=== PATIENT | female | born 1995 | race African-American/Black ===

== ENCOUNTER 2018-11-01 10:18 | Observation (INO) | payer MEDICAID ==
[2018-11-01 12:32] LABS: Urine WBC None Seen /hpf (0 - 5)
[2018-11-01 12:54] LABS: Urine Bacteria NONE SEEN /hpf (None Seen); Urine Blood Negative /uL (Negative); Urine Specific Gravity 1.002 (1.001-1.035)
[2018-11-01 13:09] LABS: Alcohol, Urine < 3.0 mg/dL (0-5); Amphetamine Screen, Urine NEGATIVE (NEGATIVE); Barbiturate Scree,Urine NEGATIVE (NEGATIVE); Benzodiazephine Screen, Urine NEGATIVE (NEGATIVE); Cannabinoid Screen, Urine NEGATIVE (NEGATIVE); Cocaine Screen, Urine NEGATIVE (NEGATIVE); Opiate Scree,Urine NEGATIVE (NEGATIVE); Phencyclidine Screen, Urine NEGATIVE (NEGATIVE)
== END 2018-11-01 17:39 | disposition home or self-care (01) | DRG 566 ==
LOC: LDRP 10:18
PROVIDERS: ADMIT Obstetrics & Gynecology; ATTEND Obstetrics & Gynecology
DX: O36.8920 Maternal care for other specified fetal problems, second trimester, not applicable or unspecified (principal); O26.892 Other specified pregnancy related conditions, second trimester; M54.9 Dorsalgia, unspecified; R10.9 Unspecified abdominal pain; Z3A.24 24 weeks gestation of pregnancy
CPT/HCPCS: 59025; 76815; 80307; 81001; 81002; G0378

== ENCOUNTER 2018-12-15 13:20 | Observation (INO) | payer MEDICAID ==
[2018-12-15] MEDS ORDERED: PREN-153 PO (13:40)
[2018-12-15] MEDS ORDERED: METF-370 PO (13:42)
== END 2018-12-15 14:25 | disposition home or self-care (01) | DRG 566 ==
LOC: LDRP 13:20
PROVIDERS: ADMIT Specialist; ATTEND Specialist
DX: O36.8130 Decreased fetal movements, third trimester, not applicable or unspecified (principal); Z3A.30 30 weeks gestation of pregnancy
CPT/HCPCS: 82962; G0378; 59025; 81002

== ENCOUNTER 2018-12-19 18:55 | Observation (INO) | payer MEDICAID ==
[~2018-12-19] VITALS: Ht 160 cm; Wt 88.5 kg
[~2018-12-19 18:55] MED LIST: METF-370 PO; PREN-153 PO
== END 2018-12-19 19:57 | disposition home or self-care (01) | DRG 566 ==
LOC: LDRP 18:55
PROVIDERS: ADMIT Specialist; ATTEND Specialist
DX: O24.419 Gestational diabetes mellitus in pregnancy, unspecified control (principal); Z3A.31 31 weeks gestation of pregnancy
CPT/HCPCS: 76818; 82962; G0378; 59025; 81002; 82948

== ENCOUNTER 2018-12-23 14:22 | Observation (INO) | payer MEDICAID | END 2018-12-23 16:15 | disposition home or self-care (01) | DRG 566 | LOC: LDRP 14:22 | PROVIDERS: ADMIT Obstetrics & Gynecology; ATTEND Obstetrics & Gynecology | DX: O24.419 Gestational diabetes mellitus in pregnancy, unspecified control (principal); Z3A.32 32 weeks gestation of pregnancy | CPT/HCPCS: 59025; 76818; 81002; 82948; 82962; G0378 ==

== ENCOUNTER 2018-12-26 19:07 | Observation (INO) | payer MEDICAID ==
[2018-12-26] MEDS ORDERED: NIF10C PO (20:06)
== END 2018-12-26 20:20 | disposition home or self-care (01) | DRG 566 ==
LOC: LDRP 19:07
PROVIDERS: ADMIT Obstetrics & Gynecology; ATTEND Obstetrics & Gynecology
DX: O24.419 Gestational diabetes mellitus in pregnancy, unspecified control (principal); Z3A.32 32 weeks gestation of pregnancy
CPT/HCPCS: 59025; 76818; 81002; 82948; 82962; G0378

== ENCOUNTER 2018-12-29 22:32 | Observation (INO) | payer MEDICAID ==
[~2018-12-29] VITALS: Ht 160 cm; Wt 88.5 kg
[~2018-12-29 22:32] MED LIST changes: +NIF10C PO
[2018-12-29] MEDS ORDERED: TERBUTALINE SULFATE 1 MG/ML 1ML VIAL SC SCH (23:30)
[2018-12-29] MEDS ORDERED: TERBUTALINE SULFATE 1 MG/ML 1ML VIAL SC ONE (23:33)
[2018-12-30] MEDS ORDERED: NIFEdipine 10 MG CAP ONE (00:12)
[2018-12-30] MEDS ORDERED: NIFEdipine 10 MG CAP PO ONE (00:15)
== END 2018-12-30 00:25 | disposition home or self-care (01) | DRG 566 ==
LOC: LDRP 22:32
PROVIDERS: ADMIT Specialist; ATTEND Specialist
DX: O26.893 Other specified pregnancy related conditions, third trimester (principal); R10.9 Unspecified abdominal pain; Z3A.32 32 weeks gestation of pregnancy
CPT/HCPCS: 59025; 81002; 82948; 82962; 96372; G0378; J3105

== ENCOUNTER 2019-01-02 13:09 | Observation (INO) | payer MEDICAID | END 2019-01-02 14:50 | disposition home or self-care (01) | DRG 566 | LOC: LDRP 13:10 | PROVIDERS: ADMIT Specialist; ATTEND Specialist | DX: O24.419 Gestational diabetes mellitus in pregnancy, unspecified control (principal); Z3A.33 33 weeks gestation of pregnancy | CPT/HCPCS: 59025; 76818; 81002; 82962; G0378 ==

== ENCOUNTER 2019-01-12 11:25 | Observation (INO) | payer MEDICAID ==
[~2019-01-12] VITALS: Ht 160 cm; Wt 88.5 kg
[2019-01-12] MEDS ORDERED: NIFEdipine 10 MG CAP PO ONE (12:15)
[2019-01-12] MEDS ORDERED: LACTATED RINGER'S 1,000 ML IV ONE (12:15)
== END 2019-01-12 14:45 | disposition home or self-care (01) | DRG 566 ==
LOC: LDRP 11:25
PROVIDERS: ADMIT Specialist; ATTEND Specialist
DX: O24.419 Gestational diabetes mellitus in pregnancy, unspecified control (principal); O62.9 Abnormality of forces of labor, unspecified; Z3A.34 34 weeks gestation of pregnancy
CPT/HCPCS: 59025; 76818; 81002; 82962; G0378

== ENCOUNTER 2019-02-03 15:53 | Observation (INO) | payer MEDICAID | END 2019-02-03 17:50 | disposition home or self-care (01) | DRG 566 | LOC: LDRP 15:53 | PROVIDERS: ADMIT Obstetrics & Gynecology; ATTEND Obstetrics & Gynecology | DX: O24.419 Gestational diabetes mellitus in pregnancy, unspecified control (principal); Z3A.38 38 weeks gestation of pregnancy | CPT/HCPCS: 59025; 76818; 81002; 82948; 82962; G0378 ==

== ENCOUNTER 2019-02-04 09:45 | Inpatient (IN) | payer MEDICAID ==
[2019-02-04] VITALS (11 sets, daily range): BP systolic 95–120; BP diastolic 45–59
[~2019-02-04] VITALS: Ht 160 cm; Wt 89.4 kg
[2019-02-04] MEDS ORDERED: BUTORPHANOL TARTRATE 2 MG/1 ML VIAL IV ONE (11:00)
[2019-02-04 11:29] LABS: Basophils # (auto) 0.1 uL; Basophils % (auto) 0.6 % (0.0-2.0); Eosinophils # (auto) 0.1 uL; Eosinophils % (auto) 0.9 % (0.0-7.0); Hematocrit 42.5 % (36.0-46.0); Hemoglobin 14.5 g/dL (12.2-16.2); Lymphocytes # (auto) 0.7 uL; Lymphocytes % (auto) 7.1 % (10.0-50.0); Mean Corpuscular Hgb Conc. 34.2 g/dL (32.0-36.0); Mean Corpuscular Volume 87.7 fL (80.0-100.0); Monocytes # (auto) 0.5 uL; Monocytes % (auto) 4.9 % (0.0-12.0); Neutrophils # (auto) 8.8 uL; Neutrophils % (auto) 86.5 % (37.0-80.0); Nucleated Red Blood Cells % 0.1 %; Platelet Count (auto) 141 10^3/uL (140-450); Red Blood Cells 4.85 10^6/uL (4.0-5.20); Red Cell Distribution Width 14.9 % (11.8-14.3); White Blood Cell 10.1 10^3/uL (4.4-10.8)
[2019-02-04] MEDS: LACTATED RINGER'S 1,000 ML IV SCH ×3 (11:36→23:30)
[2019-02-04 11:44] LABS: INR < 0.93 (0.9-1.15); Partial Thromboplastin Time 29.6 sec (23.64-32.05)
[2019-02-04] MEDS ORDERED: TETRACAINE 1% INJ 2 ML VIAL IJ ONE (11:45)
[2019-02-04 11:50] LABS: BUN/Creatinine Ratio 8.3; Calcium 9.7 mg/dL (8.5-10.1); Potassium 3.9 mmol/L (3.5-5.1)
[2019-02-04 11:53] LABS: Bilirubin, Total 0.4 mg/dL (0.2-1.0); Total Protein 7.4 g/dL (6.4-8.2)
[2019-02-04] MEDS ORDERED: MORPHINE SULF(PF) 0.5MG/ML 10ML VIAL ONE (11:58)
[2019-02-04] MEDS ORDERED: BUPIVACAINE/DEXTROSE MPF 0.75% 2 ML AMP IT ONE (11:58)
[2019-02-04] MEDS ORDERED: SODIUM CHLORIDE LOCK 10 ML ONE (11:58)
[2019-02-04] MEDS ORDERED: ONDANSETRON HCL 4 MG/2 ML VIAL ONE (11:58)
[2019-02-04] MEDS ORDERED: ceFAZolin 1GM VL ONE (11:58)
[2019-02-04] MEDS ORDERED: MIDAZOLAM HCL 1MG/1ML-2 ML VIAL ONE (11:58)
[2019-02-04] MEDS ORDERED: fentaNYL CITRATE 100 MCG/2 ML VL ONE (11:58)
[2019-02-04] MEDS ORDERED: OXYTOCIN 10 UNIT/ML 10ML VIAL ONE (11:58)
[2019-02-04] MEDS ORDERED: EPINEPHrine HCL 1 MG/1 ML AMP ONE (11:58)
[2019-02-04 12:22] LABS: Urine Bacteria FEW /hpf (None Seen); Urine Blood Negative /uL (Negative); Urine Specific Gravity 1.005 (1.001-1.035); Urine WBC <1 /hpf (0 - 5)
[2019-02-04 13:28] LABS: Alcohol, Urine < 3.0 mg/dL (0-5); Amphetamine Screen, Urine NEGATIVE (NEGATIVE); Barbiturate Scree,Urine NEGATIVE (NEGATIVE); Benzodiazephine Screen, Urine NEGATIVE (NEGATIVE); Cannabinoid Screen, Urine NEGATIVE (NEGATIVE); Cocaine Screen, Urine NEGATIVE (NEGATIVE); Opiate Scree,Urine NEGATIVE (NEGATIVE); Phencyclidine Screen, Urine NEGATIVE (NEGATIVE)
[2019-02-04] MEDS ORDERED: LACT. RINGERS/OXYTOCIN 20UNITS 1,000 ML IV SCH (13:32)
[2019-02-04] MEDS ORDERED: ceFAZolin 1GM/50ML 50 ML IV SCH (13:45)
[2019-02-04] MEDS ORDERED: ONDANSETRON HCL 4 MG/2 ML VIAL IV PRN (13:45)
[2019-02-04] MEDS ORDERED: MORPHINE SULF INJ 2 MG/ML SYRINGE 1ML IV PRN (13:45)
[2019-02-04] MEDS ORDERED: ACETAMINOPHEN IV 1000 MG/100ML (10MG/ML) IV ONE (14:04)
[2019-02-04] MEDS ORDERED: ACETAMINOPHEN IV 100 ML IV ONE (14:12)
--- NOTE | 2019-02-04 14:50 | NUR ---
Pt returned from PACU Pt taken to room 7B. Report received from Josette compensation analyst. Fundus firm, mod bleeding, dressing intact. Vitals stable, will continue to monitor.
--- NOTE | 2019-02-04 18:00 | NUR ---
PERICARE COMPLETE, PADS CHANGED, LOCHIA NOTED LIGHT. BELTRAN CATH DRAINED, 450 ML'S OF CLEAR, YELLOW URINE NOTED.
--- NOTE | 2019-02-04 18:15 | NUR ---
Received report, assumed care from Dalia PEGUERO.
--- NOTE | 2019-02-04 18:15 | NUR ---
REPORT ON STABLE PT TO Lynn SCHULZ RN.
--- NOTE | 2019-02-04 18:45 | NUR ---
Initiated assessment, reviewed plan of care, discussed goals. support provided and education reinforced. Pt verbalized understanding. Pt denies pain
[2019-02-04 20:19] LABS: Basophils # (auto) 0 uL; Basophils % (auto) 0.2 % (0.0-2.0); Eosinophils # (auto) 0 uL; Eosinophils % (auto) 0.2 % (0.0-7.0); Hematocrit 38.4 % (36.0-46.0); Hemoglobin 12.9 g/dL (12.2-16.2); Lymphocytes # (auto) 0.7 uL; Lymphocytes % (auto) 5.9 % (10.0-50.0); Mean Corpuscular Hemoglobin 29.6 pg (28.0-32.0); Mean Corpuscular Hgb Conc. 33.6 g/dL (32.0-36.0); Mean Corpuscular Volume 88.1 fL (80.0-100.0); Monocytes # (auto) 0.7 uL; Monocytes % (auto) 5.9 % (0.0-12.0); Neutrophils # (auto) 10.7 uL; Neutrophils % (auto) 87.8 % (37.0-80.0); Platelet Count (auto) 141 10^3/uL (140-450); Red Blood Cells 4.36 10^6/uL (4.0-5.20); Red Cell Distribution Width 15.2 % (11.8-14.3); White Blood Cell 12.2 10^3/uL (4.4-10.8)
[2019-02-04] MEDS: ceFAZolin 1GM/50ML 50 ML IV SCH (21:21)
[2019-02-05] VITALS (8 sets, daily range): BP systolic 98–123; BP diastolic 48–70
--- NOTE | 2019-02-05 01:00 | NUR ---
Out of bed to ambulate. Pt ambulated 300 feet, tolerated well. Pt denied need for pain medication. Pericare provided and complete linen change done.
[2019-02-05] MEDS: ceFAZolin 1GM/50ML 50 ML IV SCH ×2 (05:10→13:36)
--- NOTE | 2019-02-05 06:08 | NUR ---
Devi cath removed, pt tolerated well. Pt states pain is 8/10. Dressing removed. CNM at bedside, ordering ketoroloc and ofirmev
[2019-02-05] MEDS ORDERED: KETOROLAC TROMETH 30 MG/ML 1ML VIAL IV PRN (06:15)
[2019-02-05] MEDS ORDERED: HYDROmorphone HCL 2 MG/ML VL IV ONE (06:30)
[2019-02-05 07:06] LABS: RPR Non Reactive (Non Reactive)
--- NOTE | 2019-02-05 07:06 | NUR ---
PT UP TO BATHROOM. PT AMBULATED VIA STEADY GAIT ACCOMPANIED BY FOB. PT UNABLE TO VOID AT THIS TIME. PT GIVEN ICE WATER TO DRINK AND WILL NOTIFY RN WHEN NEEDING TO VOID. NO DISTRESS NOTED. WILL CONTINUE TO MONITOR.
[2019-02-05] MEDS: LACTATED RINGER'S 1,000 ML IV SCH (07:30)
[2019-02-05 07:43] LABS: Basophils # (auto) 0.1 uL; Basophils % (auto) 0.8 % (0.0-2.0); Eosinophils # (auto) 0 uL; Eosinophils % (auto) 0.2 % (0.0-7.0); Hematocrit 37.1 % (36.0-46.0); Hemoglobin 12.6 g/dL (12.2-16.2); Lymphocytes # (auto) 0.6 uL; Lymphocytes % (auto) 5.6 % (10.0-50.0); Mean Corpuscular Hemoglobin 30.1 pg (28.0-32.0); Mean Corpuscular Hgb Conc. 33.9 g/dL (32.0-36.0); Mean Corpuscular Volume 88.8 fL (80.0-100.0); Monocytes # (auto) 0.6 uL; Monocytes % (auto) 5.5 % (0.0-12.0); Neutrophils # (auto) 9.4 uL; Neutrophils % (auto) 87.9 % (37.0-80.0); Platelet Count (auto) 153 10^3/uL (140-450); Red Blood Cells 4.18 10^6/uL (4.0-5.20); Red Cell Distribution Width 15.2 % (11.8-14.3); White Blood Cell 10.7 10^3/uL (4.4-10.8)
--- NOTE | 2019-02-05 11:00 | NUR ---
PT GIVEN 2 PITCHERS OF ICE WATER TO DRINK AND ENCOURAGED GET UP AND VOID. PT NOTIFIED THAT AFTER 6 HRS OF NOT VOIDING I WILL HAVE TO STRAIGHT CATHETERIZE HER BLADDER. PT VERBALIZED UNDERSTANDING AND AGREES TO DRINK THE WATER. WILL CONTINUE TO MONITOR.
--- NOTE | 2019-02-05 12:45 | NUR ---
NOTIFIED DR. CRAFT, STATUS UPDATE GIVEN. PT HAS ACTIVE BOWEL SOUNDS BUT HAS NOT PASSED FLATUS YET AND HAS NOT VOIDED SINCE BELTRAN CATHETER REMOVAL AT 0600. PT STILL ON LR AT 125ML/HR PER ORDER AND GIVEN 2 ICE WATER PITCHERS TO DRINK. ORDERS RECEIVED FROM DR. CRAFT FOR POST OP DAY 1 ORDERS, AND STRAIGHT CATH PT IN 30 MINUTES IF PT HAS NOT VOIDED YET. READ BACK AND VERIFIED ORDERS. WILL CARRY OUT. Addendum: 02/05/19 at 1257 by Skylar Pavon RN DR. CRAFT ALSO NOTIFIED OF TODAY'S CBC RESULTS.
[2019-02-05] MEDS ORDERED: BISACODYL 10 MG RECT SUPP PR PRN (13:00)
[2019-02-05] MEDS ORDERED: HYDROcodone-ACET 5/325MG TAB PO PRN (13:00)
[2019-02-05] MEDS: SIMETHICONE 80 MG CHEWABLE TABLET PO SCH ×2 (13:44→21:38)
--- NOTE | 2019-02-05 17:30 | NUR ---
VOID #22 PT VOIDED 450ML PINK TINGED URINE WITHOUT DIFFICULTY. WILL CONTINUE TO MONITOR. Addendum: 02/05/19 at 1807 by Skylar Pavon RN VOID #2
[2019-02-05] MEDS ORDERED: TETANUS-DIPTH-ACEL PERTUSSIS 0.5ML SYRG IM ONE (19:00)
[2019-02-05] MEDS: IBUPROFEN 800 MG TAB PO PRN (20:34)
--- NOTE | 2019-02-05 21:00 | NUR ---
Spoke with Dr Christy, informed Dr Christy of suppository administration and patient requesting regular diet if BM had. Per Dr Christy patient may be advanced to regular diet if patient has BM.
[2019-02-05] MEDS: DOCUSATE SOD 100 MG CAP PO SCH (21:38)
[2019-02-06] MEDS: HYDROcodone-ACET 5/325MG TAB PO PRN ×3 (00:10→13:57)
[2019-02-06 03:27] VITALS: BP 111/51
[2019-02-06] MEDS: IBUPROFEN 800 MG TAB PO PRN ×2 (05:14→15:43)
[2019-02-06] MEDS: SIMETHICONE 80 MG CHEWABLE TABLET PO SCH ×3 (05:15→17:40)
[2019-02-06 07:00] VITALS: BP 98/56
[2019-02-06] MEDS: DOCUSATE SOD 100 MG CAP PO SCH (09:56)
[2019-02-06] MEDS: DOCUSATE CALCIUM 240 MG CAP PO SCH (09:56)
[2019-02-06 11:00] VITALS: BP 123/63
--- NOTE | 2019-02-06 12:05 | NUR ---
Discharge: Patient taken to vehicle via ambulation by patient request with all personal belongings, accompanied by staff and family member. No distress noted at time of departure, no adverse changes in status since initial assessment. Addendum: 02/06/19 at 1215 by Leonela Stokes RN wrong patient
[2019-02-06 15:00] VITALS: BP 127/71
--- NOTE | 2019-02-06 15:00 | NUR ---
IV removal IV DC'd with clean technique, catheter fully intact. Pressure dressing applied to site. Patient tolerated procedure well. Discharged with aftercare instructions per MD. NOTE:
[2019-02-06 19:00] VITALS: BP 106/54
[2019-02-06 23:25] VITALS: BP 109/72
[2019-02-07] MEDS: DOCUSATE SOD 100 MG CAP PO SCH ×2 (00:09→09:36)
[2019-02-07] MEDS: SIMETHICONE 80 MG CHEWABLE TABLET PO SCH ×3 (00:09→11:50)
[2019-02-07] MEDS: HYDROcodone-ACET 5/325MG TAB PO PRN ×2 (00:09→04:35)
[2019-02-07 03:15] VITALS: BP 104/55
[2019-02-07 06:30] VITALS: BP 114/53
--- NOTE | 2019-02-07 09:20 | NUR ---
Per Dr Christy order Cm removed with clean technique; incision clean, dry, and approximated; no redness or drainage noted; steri strips applied; pt tolerated well.
[2019-02-07] MEDS: DOCUSATE CALCIUM 240 MG CAP PO SCH (09:36)
[2019-02-07] MEDS: IBUPROFEN 800 MG TAB PO PRN (09:36)
[2019-02-07 11:10] VITALS: BP 122/65
--- NOTE | 2019-02-07 11:10 | NUR ---
Discharge: Discharge instructions given as ordered. Pt encouraged to follow up with CONTROL OPERATOR as instructed. All questions and concerns addressed. Patient verbalized understanding. Medication reconciliation completed and copy given to patient. All required/requested vaccines given and copies of vaccinations given to patient. Patient encouraged to prepare to depart unit.
--- NOTE | 2019-02-07 12:25 | NUR ---
Discharge: Patient ambulated to vehicle with all personal belongings, accompanied by staff and family members. No distress noted at time of departure, no adverse changes in status since initial assessment.
== END 2019-02-07 12:25 | disposition home or self-care (01) | DRG 540 ==
LOC: LDRP 09:45 → OBSVTOIN 10:45 → LDRP 13:16
PROVIDERS: ADMIT Obstetrics & Gynecology; ATTEND Obstetrics & Gynecology
PROC: 10D00Z1 Extraction of Products of Conception, Low, Open Approach (ICD-10-PCS; principal; 2019-02-04 12:08)
DX: O69.1XX0 Labor and delivery complicated by cord around neck, with compression, not applicable or unspecified (principal); O24.429 Gestational diabetes mellitus in childbirth, unspecified control; O36.63X0 Maternal care for excessive fetal growth, third trimester, not applicable or unspecified; Z37.0 Single live birth; Z3A.37 37 weeks gestation of pregnancy
CPT/HCPCS: 36415; 51702; 59025; 80053; 80307; 81001; 81002; 84112; 85025; 85610; 85730; 86592; 86850; 86900; 86901; 90715; 94762; 96361; 96366; 96372; 96375; G0378; J0131; J0171; J0690; J1885; J2250; J2405; J2590

== ENCOUNTER 2020-04-27 11:15 | Observation (INO) | payer MEDICAID ==
[~2020-04-27] VITALS: Ht 160 cm; Wt 81.6 kg
[~2020-04-27 11:15] MED LIST changes: -METF-370 PO; -NIF10C PO
[2020-04-27] MEDS ORDERED: METF-370 PO (14:12)
[2020-04-27] MEDS ORDERED: NIF10C GT (14:17)
== END 2020-04-27 14:33 | disposition home or self-care (01) ==
LOC: LDRP 11:15
PROVIDERS: ADMIT Obstetrics & Gynecology; ATTEND Obstetrics & Gynecology
DX: Z01.812 Encounter for preprocedural laboratory examination (principal); Z20.828 Contact with and (suspected) exposure to other viral communicable diseases; O60.03 Preterm labor without delivery, third trimester; O24.419 Gestational diabetes mellitus in pregnancy, unspecified control; O36.8130 Decreased fetal movements, third trimester, not applicable or unspecified; Z3A.39 39 weeks gestation of pregnancy
CPT/HCPCS: 59025; 76817; 76818; 81002; 82948; 82962; G0378; U0003

== ENCOUNTER 2020-04-29 04:00 | Inpatient (IN) | payer MEDICAID ==
[2020-04-29] VITALS (14 sets, daily range): BP systolic 110–130; BP diastolic 57–86
[~2020-04-29] VITALS: Ht 160 cm; Wt 82.6 kg
[~2020-04-29 04:00] MED LIST changes: +METF-370 PO; +NIF10C GT
[2020-04-29] MEDS ORDERED: SODIUM CITR/CITRIC ACID ORAL SOLN 30 ML PO ONE (04:30)
[2020-04-29] MEDS ORDERED: LACTATED RINGER'S 1,000 ML IV SCH (04:30)
[2020-04-29] MEDS ORDERED: LACTATED RINGER'S 1,000 ML IV ONE (04:30)
[2020-04-29] MEDS ORDERED: ceFAZolin 1GM/50ML 50 ML IV ONE (04:30)
[2020-04-29] MEDS: TERBUTALINE SULFATE 1 MG/ML 1ML VIAL SC SCH ×2 (05:00→05:20)
[2020-04-29 05:41] LABS: Basophils # (auto) 0 10 ^3/uL (0-0.2); Basophils % (auto) 0.1 % (0.0-2.0); Eosinophils # (auto) 0.1 10 ^3/uL (0-0.8); Eosinophils % (auto) 1.1 % (0.0-7.0); Hematocrit 34.1 % (36.0-46.0); Hemoglobin 11.8 g/dL (12.2-16.2); Lymphocytes # (auto) 1.4 10 ^3/uL (0.4-5.4); Lymphocytes % (auto) 15.3 % (10.0-50.0); Mean Corpuscular Hemoglobin 29.9 pg (28.0-32.0); Mean Corpuscular Hgb Conc. 34.5 g/dL (32.0-36.0); Mean Corpuscular Volume 86.6 fL (80.0-100.0); Monocytes # (auto) 0.6 10 ^3/uL (0-1.3); Monocytes % (auto) 6.4 % (0.0-12.0); Neutrophils # (auto) 6.9 10 ^3/uL (1.6-8.6); Neutrophils % (auto) 77.1 % (37.0-80.0); Nucleated Red Blood Cells % 0.4 %; Platelet Count (auto) 149 10^3/uL (140-450); Red Blood Cells 3.94 10^6/uL (4.0-5.20); Red Cell Distribution Width 16.4 % (11.8-14.3)
[2020-04-29 05:46] LABS: Urine Amorphous Crystal FEW /hpf (None Seen); Urine Bacteria FEW /hpf (None Seen); Urine Blood Negative /uL (Negative); Urine Specific Gravity 1.004 (1.001-1.035); Urine WBC 1 /hpf (0 - 5)
[2020-04-29 05:57] LABS: INR 0.93 (0.9-1.15); Partial Thromboplastin Time 24.6 sec (23.0-31.2)
[2020-04-29 06:05] LABS: Potassium 3.7 mmol/L (3.5-5.1)
[2020-04-29 06:20] LABS: Albumin 2.5 g/dL (3.4-5.0); BUN/Creatinine Ratio 9.1; Bilirubin, Total 0.4 mg/dL (0.2-1.0); Calcium 9.3 mg/dL (8.5-10.1); Total Protein 6.5 g/dL (6.4-8.2)
[2020-04-29 06:21] LABS: Alcohol, Urine < 3.0 mg/dL (0-10); Amphetamine Screen, Urine NEGATIVE (NEGATIVE); Barbiturate Scree,Urine NEGATIVE (NEGATIVE); Benzodiazephine Screen, Urine NEGATIVE (NEGATIVE); Cannabinoid Screen, Urine NEGATIVE (NEGATIVE); Cocaine Screen, Urine NEGATIVE (NEGATIVE); Opiate Scree,Urine NEGATIVE (NEGATIVE); Phencyclidine Screen, Urine NEGATIVE (NEGATIVE)
[2020-04-29] MEDS ORDERED: TETRACAINE 1% INJ 2 ML VIAL IJ ONE (07:13)
[2020-04-29] MEDS ORDERED: oxyTOCIN 10 UNIT/ML 10ML VIAL ONE (07:57)
[2020-04-29] MEDS ORDERED: EPINEPHrine HCL 1 MG/1 ML AMP ONE (07:57)
[2020-04-29] MEDS ORDERED: SODIUM CHLORIDE LOCK 10 ML ONE (07:57)
[2020-04-29] MEDS ORDERED: MIDAZOLAM HCL 1MG/1ML-2 ML VIAL ONE (07:57)
[2020-04-29] MEDS ORDERED: fentaNYL CITRATE 100 MCG/2 ML VL ONE (07:57)
[2020-04-29] MEDS ORDERED: MORPHINE SULF(PF) 0.5MG/ML 10ML VIAL ONE (07:57)
[2020-04-29] MEDS ORDERED: BUPIVACAINE 0.5% P/F INJ 10 ML VIAL ONE (07:57)
[2020-04-29] MEDS: ceFAZolin 1GM/50ML 50 ML IV SCH ×2 (09:15→17:01)
[2020-04-29] MEDS ORDERED: GUM (CHEWING) 1 GUM CHEW CHEW ONE (09:15)
[2020-04-29] MEDS: LACTATED RINGER'S 1,000 ML IV SCH ×3 (09:15→22:50)
[2020-04-29] MEDS ORDERED: ONDANSETRON HCL 4 MG/2 ML VIAL IV PRN ×2 (09:15→09:30)
[2020-04-29] MEDS ORDERED: HYDROmorphone HCL 2 MG/ML VL IV PRN ×2 (09:15→09:30)
[2020-04-29] MEDS ORDERED: KETOROLAC TROMETH 30 MG/ML 1ML VIAL IV PRN (09:15)
[2020-04-29] MEDS ORDERED: DexAMETHasone SOD PHOS 10MG/1ML VIAL INJ IV PRN (09:30)
[2020-04-29] MEDS ORDERED: NALOXONE HCL 0.4 MG/ML VIAL IV PRN (09:30)
[2020-04-29] MEDS ORDERED: diphenhdrAMINE HCL 50 MG/1 ML VL IV PRN (09:30)
[2020-04-29] MEDS ORDERED: ACCU-CHEK COMFORT CURVE STRIP VI ONE (09:30)
[2020-04-29] MEDS ORDERED: ePHEDrine SULFATE 50 MG/ML AMP IV PRN (09:30)
[2020-04-29] MEDS ORDERED: LABETALOL HCL 5 MG/ML 4ML SYRINGE IV PRN (09:30)
[2020-04-29] MEDS ORDERED: NALBUPHINE HCL 10 MG/1ml INJECTION SUBCUT ONE (09:30)
[2020-04-29] MEDS: KETOROLAC TROMETH 30 MG/ML 1ML VIAL IV PRN (22:51)
[2020-04-30] VITALS (8 sets, daily range): BP systolic 105–121; BP diastolic 51–79
[2020-04-30] MEDS: ceFAZolin 1GM/50ML 50 ML IV SCH (01:06)
[2020-04-30 05:06] LABS: RPR Non Reactive (Non Reactive)
[2020-04-30] MEDS: KETOROLAC TROMETH 30 MG/ML 1ML VIAL IV PRN (06:05)
[2020-04-30 07:25] LABS: Basophils # (auto) 0 10 ^3/uL (0-0.2); Basophils % (auto) 0.3 % (0.0-2.0); Eosinophils # (auto) 0 10 ^3/uL (0-0.8); Eosinophils % (auto) 0.5 % (0.0-7.0); Hematocrit 30.9 % (36.0-46.0); Lymphocytes # (auto) 0.4 10 ^3/uL (0.4-5.4); Lymphocytes % (auto) 5.2 % (10.0-50.0); Mean Corpuscular Hemoglobin 30.4 pg (28.0-32.0); Mean Corpuscular Hgb Conc. 35.6 g/dL (32.0-36.0); Mean Corpuscular Volume 85.4 fL (80.0-100.0); Monocytes # (auto) 0.5 10 ^3/uL (0-1.3); Neutrophils # (auto) 7.1 10 ^3/uL (1.6-8.6); Nucleated Red Blood Cells % 0.1 %; Platelet Count (auto) 129 10^3/uL (140-450); Red Blood Cells 3.61 10^6/uL (4.0-5.20); Red Cell Distribution Width 16.3 % (11.8-14.3); White Blood Cell 8.1 10^3/uL (4.4-10.8)
[2020-04-30] MEDS: DOCUSATE SOD 100 MG CAP PO SCH ×2 (11:32→21:59)
[2020-04-30] MEDS: IBUPROFEN 800 MG TAB PO PRN ×2 (11:32→19:26)
[2020-04-30] MEDS: HYDROcodone-ACET 5/325MG TAB PO PRN ×2 (16:07→22:00)
[2020-05-01] MEDS: IBUPROFEN 800 MG TAB PO PRN ×3 (03:11→18:30)
[2020-05-01 03:15] VITALS: BP 110/59
[2020-05-01 07:15] VITALS: BP 104/59
[2020-05-01] MEDS: HYDROcodone-ACET 5/325MG TAB PO PRN ×3 (07:26→21:29)
[2020-05-01] MEDS: DOCUSATE SOD 100 MG CAP PO SCH ×2 (10:27→21:29)
[2020-05-01 11:03] VITALS: BP 114/75
[2020-05-01 15:00] VITALS: BP 115/62
[2020-05-01] MEDS ORDERED: HYDR-4833 PO (18:09)
[2020-05-01] MEDS: SIMETHICONE 80 MG CHEWABLE TABLET PO PRN (18:29)
[2020-05-01 18:49] VITALS: BP 112/69
[2020-05-01 22:58] VITALS: BP 124/73
[2020-05-02] MEDS: IBUPROFEN 800 MG TAB PO PRN (01:57)
[2020-05-02 03:09] VITALS: BP 127/75
[2020-05-02] MEDS ORDERED: BISACODYL 10 MG RECT SUPP PR ONE (03:15)
[2020-05-02] MEDS: HYDROcodone-ACET 5/325MG TAB PO PRN (04:59)
[2020-05-02] MEDS: SIMETHICONE 80 MG CHEWABLE TABLET PO PRN (04:59)
[2020-05-02 07:07] VITALS: BP 119/69
== END 2020-05-02 09:55 | disposition home or self-care (01) | DRG 540 ==
LOC: LDRP 04:00
PROVIDERS: ADMIT Specialist; ATTEND Specialist
PROC: 10D00Z1 Extraction of Products of Conception, Low, Open Approach (ICD-10-PCS; principal; 2020-04-29 07:50)
DX: O34.211 Maternal care for low transverse scar from previous cesarean delivery (principal); O24.420 Gestational diabetes mellitus in childbirth, diet controlled; O36.63X0 Maternal care for excessive fetal growth, third trimester, not applicable or unspecified; Z37.0 Single live birth; Z3A.39 39 weeks gestation of pregnancy; Z79.899 Other long term (current) drug therapy; Z79.84 Long term (current) use of oral hypoglycemic drugs
CPT/HCPCS: 36415; 59025; 80053; 80307; 81001; 81002; 82948; 82962; 85025; 85610; 85730; 86592; 86850; 86900; 86901; 94762; 96360; 96361; 96365; 96374; 96375; G0378; J0171; J0690; J1885; J2250; J2405; J2590; J3490

== ENCOUNTER 2021-02-15 12:46 | Emergency (ER) | payer MEDICAID ==
[~2021-02-15] VITALS: Ht 160 cm; Wt 66.7 kg
[~2021-02-15 12:46] MED LIST changes: +HYDR-4833 PO; -PREN-153 PO; +PREN1TAB71 PO
[2021-02-15 12:56] VITALS: BP 119/51
[2021-02-15] MEDS ORDERED: ONDANSETRON ODT 4 MG TAB PO ONE (14:00)
[2021-02-15 14:26] LABS: Calcium 9.5 mg/dL (8.5-10.1); Magnesium 2.5 mg/dL (1.6-2.6); Potassium 3.8 mmol/L (3.5-5.1)
[2021-02-15 14:31] LABS: BUN/Creatinine Ratio 8.3; Bilirubin, Total 0.2 mg/dL (0.2-1.0)
== END 2021-02-15 16:57 | disposition left against medical advice (07) ==
LOC: ER 12:46
DX: O26.891 Other specified pregnancy related conditions, first trimester (principal); R55 Syncope and collapse; Z79.899 Other long term (current) drug therapy; Z3A.08 8 weeks gestation of pregnancy
CPT/HCPCS: 36415; 76801; 80053; 83735; 84484; 84702; 93005

== ENCOUNTER 2022-05-02 14:10 | Emergency (ER) | payer MEDICAID ==
[~2022-05-02] VITALS: Ht 160 cm; Wt 59.1 kg
[2022-05-02 14:54] LABS: Basophils # (auto) 0.1 10 ^3/uL (0-0.2); Basophils % (auto) 0.4 % (0.0-2.0); Eosinophils # (auto) 0 10 ^3/uL (0-0.8); Eosinophils % (auto) 0.2 % (0.0-7.0); Hematocrit 28.2 % (36.0-46.0); Hemoglobin 9.7 g/dL (12.2-16.2); Lymphocytes % (auto) 5.5 % (10.0-50.0); Mean Corpuscular Hemoglobin 28.6 pg (28.0-32.0); Mean Corpuscular Hgb Conc. 34.6 g/dL (32.0-36.0); Mean Corpuscular Volume 82.8 fL (80.0-100.0); Monocytes % (auto) 5.7 % (0.0-12.0); Neutrophils # (auto) 15.1 10 ^3/uL (1.6-8.6); Neutrophils % (auto) 88.2 % (37.0-80.0); Red Cell Distribution Width 14.9 % (11.8-14.3); White Blood Cell 17.2 10^3/uL (4.4-10.8)
[2022-05-02 15:08] LABS: Albumin 2.6 g/dL (3.4-5.0); Calcium 8.7 mg/dL (8.5-10.1); Potassium 4.1 mmol/L (3.5-5.1)
[2022-05-02 15:10] LABS: BUN/Creatinine Ratio 7.8
[2022-05-02 15:12] LABS: Bilirubin, Total 0.3 mg/dL (0.2-1.0); Total Protein 6.8 g/dL (6.4-8.2)
[2022-05-02 16:05] LABS: Urine Bacteria FEW /hpf (None Seen); Urine Blood Negative /uL (Negative); Urine Specific Gravity 1.004 (1.001-1.035); Urine WBC 41 /hpf (0 - 5)
[2022-05-02] MEDS ORDERED: CEPH-510 PO (17:32)
[2022-05-02 18:47] VITALS: BP 110/62
== END 2022-05-02 18:49 | disposition home or self-care (01) ==
LOC: ER 14:10
DX: O23.41 Unspecified infection of urinary tract in pregnancy, first trimester (principal); N39.0 Urinary tract infection, site not specified; R10.2 Pelvic and perineal pain; R55 Syncope and collapse; Z3A.01 Less than 8 weeks gestation of pregnancy
CPT/HCPCS: 36415; 80053; 81001; 84484; 84702; 85025; 93005

== ENCOUNTER 2022-05-07 16:39 | Emergency (ER) | payer MEDICAID ==
[~2022-05-07] VITALS: Ht 160 cm; Wt 57.9 kg
[~2022-05-07 16:39] MED LIST changes: +CEPH-510 PO
[2022-05-07 19:38] LABS: Basophils # (auto) 0.1 10 ^3/uL (0-0.2); Basophils % (auto) 0.5 % (0.0-2.0); Eosinophils # (auto) 0.2 10 ^3/uL (0-0.8); Eosinophils % (auto) 1.3 % (0.0-7.0); Hematocrit 31.3 % (36.0-46.0); Hemoglobin 10.3 g/dL (12.2-16.2); Lymphocytes # (auto) 1.6 10 ^3/uL (0.4-5.4); Lymphocytes % (auto) 13.2 % (10.0-50.0); Mean Corpuscular Hemoglobin 27.6 pg (28.0-32.0); Mean Corpuscular Hgb Conc. 32.8 g/dL (32.0-36.0); Mean Corpuscular Volume 84.1 fL (80.0-100.0); Monocytes # (auto) 0.5 10 ^3/uL (0-1.3); Monocytes % (auto) 4.4 % (0.0-12.0); Neutrophils # (auto) 9.8 10 ^3/uL (1.6-8.6); Neutrophils % (auto) 80.6 % (37.0-80.0); Nucleated Red Blood Cells % 0.1 %; Red Blood Cells 3.72 10^6/uL (4.0-5.20); Red Cell Distribution Width 14.8 % (11.8-14.3); White Blood Cell 12.2 10^3/uL (4.4-10.8)
[2022-05-07 19:52] LABS: Potassium 4.6 mmol/L (3.5-5.1)
[2022-05-07 19:55] LABS: Urine Bacteria NONE SEEN /hpf (None Seen); Urine Blood 3+ /uL (Negative); Urine WBC 40 /hpf (0 - 5)
[2022-05-07 19:56] LABS: Albumin 2.7 g/dL (3.4-5.0); BUN/Creatinine Ratio 16.2; Calcium 9.2 mg/dL (8.5-10.1)
[2022-05-07 20:00] LABS: Bilirubin, Total 0.2 mg/dL (0.2-1.0); Total Protein 7.2 g/dL (6.4-8.2)
[2022-05-08] MEDS ORDERED: MORPHINE SULFATE INJ 2 MG/ml SYRG IV ONE (01:30)
[2022-05-08] MEDS ORDERED: ONDANSETRON HCL 4 MG/2 ML VIAL IV ONE (01:30)
[2022-05-08] MEDS ORDERED: METHOTREXATE SODIUM 25 MG/ML 2ML SDV INJ IM ONE (02:00)
[2022-05-08 03:00] VITALS: BP 95/42
[2022-05-08] MEDS ORDERED: PERCOT PO (03:21)
== END 2022-05-08 03:23 | disposition home or self-care (01) ==
LOC: ER 16:39
DX: O20.8 Other hemorrhage in early pregnancy (principal); Z3A.01 Less than 8 weeks gestation of pregnancy
CPT/HCPCS: 36415; 76801; 76817; 80053; 81001; 84702; 85025; 96372; 96374; 96375; 99285; J2270; J2405; J9250

== ENCOUNTER 2022-05-12 11:18 | Emergency (ER) | payer MEDICAID ==
[~2022-05-12] VITALS: Ht 160 cm; Wt 59.5 kg
[~2022-05-12 11:18] MED LIST changes: +PERCOT PO
[2022-05-12 12:12] LABS: Eosinophils # (auto) 0.1 10 ^3/uL (0-0.8); Hemoglobin 10.3 g/dL (12.2-16.2); Monocytes # (auto) 0.2 10 ^3/uL (0-1.3)
[2022-05-12 12:13] LABS: Basophils # (auto) 0.1 10 ^3/uL (0-0.2); Basophils % (auto) 0.8 % (0.0-2.0); Eosinophils % (auto) 1.7 % (0.0-7.0); Hematocrit 32.3 % (36.0-46.0); Lymphocytes # (auto) 1.6 10 ^3/uL (0.4-5.4); Lymphocytes % (auto) 22.5 % (10.0-50.0); Mean Corpuscular Hemoglobin 27.1 pg (28.0-32.0); Mean Corpuscular Hgb Conc. 31.8 g/dL (32.0-36.0); Mean Corpuscular Volume 85.1 fL (80.0-100.0); Monocytes % (auto) 2.2 % (0.0-12.0); Neutrophils # (auto) 5.1 10 ^3/uL (1.6-8.6); Neutrophils % (auto) 72.8 % (37.0-80.0); Red Cell Distribution Width 15.3 % (11.8-14.3)
[2022-05-12 12:37] LABS: Albumin 2.8 g/dL (3.4-5.0); BUN/Creatinine Ratio 10.6; Calcium 8.7 mg/dL (8.5-10.1)
[2022-05-12 12:39] LABS: Bilirubin, Total 0.2 mg/dL (0.2-1.0); Total Protein 6.8 g/dL (6.4-8.2)
[2022-05-12 18:07] VITALS: BP 115/68
== END 2022-05-12 18:09 | disposition home or self-care (01) ==
LOC: ER 11:18
DX: O26.891 Other specified pregnancy related conditions, first trimester (principal); O99.011 Anemia complicating pregnancy, first trimester; E44.0 Moderate protein-calorie malnutrition; Z3A.01 Less than 8 weeks gestation of pregnancy; Z68.23 Body mass index [BMI] 23.0-23.9, adult
CPT/HCPCS: 36415; 76830; 76856; 80053; 84702; 85025; 86850; 86900; 86901